=== PATIENT | male | born 1955 | race African-American/Black ===

== ENCOUNTER 2023-06-15 13:17 | Emergency (ER) | payer OTHER ==
[~2023-06-15] VITALS: Ht 175.3 cm; Wt 136.0 kg
[2023-06-15 13:24] VITALS: O2SAT 97
[2023-06-15] MEDS: KETOROLAC 30MG/ML VIAL IM ONE (15:20)
[2023-06-15] MEDS: HYDROCODONE/ACETAMINOPHEN 5/325MG TABLET PO ONE (15:21)
[2023-06-15] MEDS ORDERED: GABA-529 MT (16:36)
[2023-06-15] MEDS ORDERED: NAPR500T7 MT (16:36)
[2023-06-15 17:07] VITALS: BP 137/71; PULSE 89; RESP 20; TEMP 98.2
== END 2023-06-15 17:44 | disposition home or self-care (01) ==
LOC: ER 13:17
DX: M54.50 Low back pain, unspecified (principal); E11.9 Type 2 diabetes mellitus without complications
CPT/HCPCS: 99283; 96372; J1885

== ENCOUNTER 2024-03-13 12:21 | Emergency (ER) | payer BC, OTHER, MEDICAID ==
[~2024-03-13] VITALS: Ht 175.3 cm; Wt 155.0 kg
[~2024-03-13 12:21] MED LIST: GABA-529 MT; NAPR-1486 MT
[2024-03-13 12:27] VITALS: O2SAT 96
[2024-03-13 15:12] LABS: BASOPHILS % 0.2 % (0.0-2.0); EOSINOPHILS % 3.8 % (0.0-5.0); HEMATOCRIT. 40.4 % (42.0-52.0); LYMPHOCYTES % 16.8 % (20.0-50.0); MEAN CORPUSCULAR HEMOGLOBIN 27.4 pg (28.0-32.0); MEAN CORPUSCULAR VOLUME 85.7 fL (80.0-94.0); MONOCYTES % 10.1 % (2.0-8.0); NEUTROPHILS % 69.1 % (40.0-76.0); PLATELET 253 x1000/uL (130-400); RED BLOOD CELL COUNT 4.72 mill/uL (4.7-6.1); RED CELL DISTRIBUTION WIDTH 15.6 % (11.6-14.6); WHITE BLOOD COUNT 4.2 x1000/uL (4.5-11.0)
[2024-03-13 15:14] LABS: CHLORIDE 110 mEq/L (98-107); SODIUM 144 mEq/L (136-145)
[2024-03-13 15:17] LABS: CALCIUM 10.2 mg/dL (8.7-10.4); CARBON DIOXIDE 24 mEq/L (21-32)
[2024-03-13 15:22] LABS: CREATININE 1.3 mg/dL (0.6-1.3); GLUCOSE 94 mg/dL (70-105); UREA NITROGEN BLOOD 15 mg/dL (9-23)
[2024-03-13 15:24] LABS: ALANINE AMINOTRANSFERASE 14 IU/L (10-49); ALBUMIN 4.5 g/dL (3.2-4.8); ASPARTATE AMINOTRANSFERASE 22 IU/L (<34); BILIRUBIN DIRECT 0.4 mg/dL (<=3.0); BILIRUBIN TOTAL 1.1 mg/dL (0.1-1.0); PROTEIN TOTAL 7.6 g/dL (6.0-8.3)
[2024-03-13] MEDS: POTASSIUM CHLORIDE 20MEQ/PACKET PO ONE (17:27)
[2024-03-13 17:29] VITALS: BP 152/77; PULSE 98; RESP 18; TEMP 36.78072; O2SAT 99
== END 2024-03-13 17:42 | disposition home or self-care (01) ==
LOC: ER 12:36
DX: R19.7 Diarrhea, unspecified (principal); E87.6 Hypokalemia; E11.9 Type 2 diabetes mellitus without complications; I11.9 Hypertensive heart disease without heart failure
CPT/HCPCS: 36415; 80048; 80076; 85025; 99283